=== PATIENT | female | born 1980 | race Caucasian/White ===

== ENCOUNTER 2024-08-16 07:05 | Emergency (ER) | payer BC ==
[2024-08-16] MEDS ORDERED: Ketorolac Tromethamine 60 MG/2 ML VIAL ONE (07:57)
[2024-08-16] MEDS ORDERED: Famotidine/PF 20 mg/2ml Vial ONE (08:21)
[2024-08-16] MEDS ORDERED: Ondansetron PF 4 MG/2 ML Vial ONE (08:21)
[2024-08-16 08:34] LABS: #Basophils 0.1 thou/uL (0.0-0.2); #Lymphocytes 1.5 thou/uL (1.20-3.40); #Monocytes 0.6 thou/uL (0.11-0.59); #Neutrophils 8.8 thou/uL (1.40-6.50); %Basophils 0.8 % (0.0-1.0); %Eosinophils 0.4 % (0.0-10.0); %Lymphocytes 13.7 % (21.0-51.0); %Monocytes 5.3 % (0.0-10.0); %Neutrophils 79.8 % (42.0-75.0); Hematocrit 38.6 % (36.0-47.0); Hemoglobin 12.8 g/dL (12.0-16.0); Mean Corpuscular HGB CONC 33.2 g/dL (32.0-36.0); Mean Corpuscular Hemoglobin 25.1 pg (27.0-31.0); Mean Corpuscular Volume 75.6 fl (78.0-98.0); Platelet Count 527 10x3/uL (130-400); RBC Distribution Width 15.3 % (11.5-14.5); Red Blood Cell (RBC) Count 5.11 mill/uL (4.20-5.40); White Blood Cell (WBC) Count 11.1 10x3/uL (4.8-10.8)
[2024-08-16 08:51] LABS: ALT (SGPT) 26 U/L (8-55); AST (SGOT) 56 U/L (5-34); Albumin 4.2 g/dL (3.5-5.0); Alkaline Phosphatase 305 U/L (40-110); Anion Gap 22 mmol/L (10-20); BUN (Urea Nitrogen) 7 mg/dL (7.0-18.7); Bilirubin, Total 0.8 mg/dL (0.2-1.2); Calc. Creatinine Clearance 0 mL/min (70-130); Calcium 9.4 mg/dL (7.8-10.44); Carbon Dioxide 19 mmol/L (22-29); Chloride 100 mmol/L (98-107); Estimated GFR 100; Globulin 3.8 g/dL (2.4-3.5); Glucose 91 mg/dL (70-105); Lipase 108 U/L (8-78); Potassium 3.4 mmol/L (3.5-5.1); Sodium 138 mmol/L (136-145)
[2024-08-16 08:59] LABS: Acetaminophen Less than 10 mcg/mL (Less than 10); Alcohol 80.5 mg/dL (Less than 10); Salicylate Less than 8.0 mg/dL (Less than 8.0)
[2024-08-16] MEDS ORDERED: Vancomycin 1 GM VIAL ONE (09:09)
[2024-08-16] MEDS ORDERED: Lorazepam 2 MG/ML VIAL ONE (09:09)
[2024-08-16] MEDS ORDERED: Cefepime 2 GM VIAL ONE (09:09)
[2024-08-16 09:45] LABS: Troponin I Less than 0.010 ng/mL (< 0.028)
[2024-08-16] MEDS ORDERED: Iopamidol 370 76% 100 ML VIAL ONE (16:01)
== END 2024-08-16 10:53 | disposition home or self-care (01) ==
LOC: BURERS 07:05
DX: S20.211A Contusion of right front wall of thorax, initial encounter (principal); F10.20 Alcohol dependence, uncomplicated; F15.20 Other stimulant dependence, uncomplicated; F17.290 Nicotine dependence, other tobacco product, uncomplicated; W19.XXXA Unspecified fall, initial encounter
CPT/HCPCS: 74177; 80053; 80307; 83605; 83690; 84484; 85025; 93005; 96365; 96367; 96372; 96375; J0692; J1885; J2060; J2405; J3370; J3490; Q9967